=== PATIENT | male | born 1940 | race Caucasian/White ===

== ENCOUNTER 2022-08-02 09:06 | Inpatient (IN) | payer MEDICARE, OTHER ==
[~2022-08-02] VITALS: Ht 165.1 cm; Wt 83.9 kg
[2022-08-02] MEDS ORDERED: IV NS 0.9% 1,000 ML BAG IV ONE (10:00)
--- NOTE | 2022-08-02 10:03 | NUR ---
taken to CT waiting at bed side
--- NOTE | 2022-08-02 10:20 | NUR ---
MOVE SHEET SUBMITTED.
[2022-08-02] MEDS ORDERED: VANCOMYCIN 1 GM in IV D5W 250 ML IV ONE (11:00)
[2022-08-02] MEDS ORDERED: CEFEPIME 1 GM in IV D5W 50 ML IV ONE (11:00)
[2022-08-02 11:34] LABS: BASOPHILS % (AUTO) 0.3 % (0.0-2.0); EOSINOPHILS % (AUTO) 0.4 % (0.0-6.0); HEMATOCRIT 36 % (39-51); HEMOGLOBIN 11.8 g/dL (13.5-17.5); LYMPHOCYTES # (AUTO) 1.7 K/uL (0.8-4.8); LYMPHOCYTES % (AUTO) 16.3 % (20.0-44.0); MEAN CORPUSCULAR HGB CONC 33 g/dl (31.0-36.0); MEAN CORPUSCULAR VOLUME 86 fL (80-96); MONOCYTES # (AUTO) 0.8 K/uL (0.1-1.30); MONOCYTES % (AUTO) 7.3 % (2.0-12.0); NEUTROPHILS % (AUTO) 75.7 % (43.0-81.0); PLATELET COUNT (AUTO) 271 K/uL (150-450); RED BLOOD CELL COUNT(AUTO) 4.21 MIL/uL (4.5-6.0); WHITE BLOOD COUNT (AUTO) 10.5 K/uL (4.3-11.0)
--- NOTE | 2022-08-02 11:35 | NUR ---
COVID SWAB DONE AND SENT TO LAB
[2022-08-02 12:10] LABS: ALANINE AMINOTRANSFERASE 22 U/L (12-78); ALBUMIN 2.7 g/dL (3.4-5.0); ALKALINE PHOSPHATASE 46 U/L (46-116); ASPARTATE AMINOTRANSFERASE 18 U/L (15-37); BILIRUBIN,DIRECT 0.2 mg/dL (0.0-0.2); BILIRUBIN,TOTAL 0.6 mg/dL (0.2-1.0); CARBON DIOXIDE 31 mmol/L (21-32); CHLORIDE 100 mmol/L (98-107); CREATININE 0.6 mg/dL (0.6-1.3); GLUCOSE 106 mg/dL (74-106); POTASSIUM 3.9 mmol/L (3.5-5.1); SODIUM SERUM 136 mmol/L (136-145); TOTAL PROTEIN, SERUM 6.8 g/dL (6.4-8.2); UREA NITROGEN, BLOOD 12 mg/dL (7-18)
[2022-08-02] MEDS ORDERED: ONDANSETRON HCL/PF 4 MG/2 ML VIAL IVP PRN (13:00)
[2022-08-02] MEDS ORDERED: Z GUARD REMEDY 4 OZ OINT TP PRN (13:00)
[2022-08-02] MEDS ORDERED: MAGNESIUM HYDROXIDE 30 ML UDC PO PRN (13:00)
[2022-08-02] MEDS ORDERED: MAG HYDROX/AL HYDROX/SIMETH 30 ML UDC PO PRN (13:00)
[2022-08-02] MEDS ORDERED: ACETAMINOPHEN 325 MG TABLET PO PRN (13:00)
[2022-08-02 13:15] VITALS: BP 105/57
--- NOTE | 2022-08-02 13:51 | NUR ---
DR. INMAN SPEAKING WITH DR. KHANNA.
[2022-08-02] MEDS ORDERED: ENOXAPARIN SODIUM 40 MG/0.4 ML DISP.SYRIN SQ SCH (14:00)
[2022-08-02] MEDS ORDERED: ASPIRIN 325 MG TABLET PO SCH (14:00)
--- NOTE | 2022-08-02 14:01 | NUR ---
GOT BED 118
--- NOTE | 2022-08-02 16:00 | NUR ---
OPENING NOTE PATIENT RECEIVED BY GIANNA FROM ER. PATIENT HAITIAN SPEAKING WITH UNDERSTANDING OF BASIC LUXEMBOURGER. ALERT AND ORIENTED X3-4. ON ROOM AIR O2 SAT 97%. PATIENT WITH RECTAL FISTULA; PATIENT HAS A RECTAL CANCER. PATIENT ON DIAPER AND URINAL NEEDED. DIAGNOSIS CELLULITIS. VITALS AT 1600 VITALS SIGNS WITHIN NORMAL RANGE BP 105/57 HR: 77 T: 98.6 O2 SAT: 97%. PATIENT NPO, HIS STATED THAT IN ER SHE WAS TOLD HE HAS TO BE NPO UNTIL TOMORROW SKOOG PATCHING MACHINE OPERATOR SEE THE PATIENT. PATIENT HAS DECUBITAL ULCER VS DESTRUCTIVE MASS COCCYX 6X4X4 CM THREE PICTURES WERE TAKEN AND PLACED IN THE CHART. PATIENT ALLERGIC TO PENICILLIN AND IODINE.
--- NOTE | 2022-08-02 18:40 | NUR ---
RN CLOSING NOTE PATIENT IS SLEEPING IN THE BED ON A ROOM AIR NO S/S OF SOB OR DISTRESS. PATIENT HAS AN IV SIT ON RAC 18 G NORMAL SALINE AT 100 ML/HR RUNNING WELL. PATIENT IS NPO. RECTAL FISTULA, AND ON DIAPER AND URINAL NEEDED. BED AT LOWEST POSITION, CALL LIGHT WITHIN RANGE, BED ALARM ON. WILL ENDORSE THE PATIENT TO THE DIESEL ELECTRICIAN FOR SEBASTIÁN.
--- NOTE | 2022-08-02 19:30 | NUR ---
TRAILERS AND MOTOR HOMES SALESPERSON OPENING NOTE RECEIVED PT IN BED AWAKE, A/OX3, JORDANIAN SPEAKING WITH UNDERSTANDING OF BASIC LITHUANIAN. ON RA O2 SAT >95%.IV ACCESS RAC #18G, INTACT AND PATENT, RUNNING NS@75ML/HR, PATIENT NPO UNTIL MORNING.TELE MONITOR READING SR HR 75, PATIENT ABLE TO MAKE NEEDS KNOWN.PT DENIES ANY PAIN AT THIS TIME. ALL SAFETY MEASURES IN PLACE, BED LOCKED IN LOWEST POSITION. WILL CONTINUE TO MONITOR THROUGHOUT SHIFT.
[2022-08-02 20:00] VITALS: BP 105/62
[2022-08-02] MEDS: CEFEPIME 2 GM in IV D5W 100 ML IV SCH (21:30)
[2022-08-02] MEDS: VANCOMYCIN 1.25 GM in IV D5W 250 ML IV SCH (22:44)
[2022-08-03] VITALS: BP 110/66
[2022-08-03 04:00] VITALS: BP 116/72
[2022-08-03] MEDS: CEFEPIME 2 GM in IV D5W 100 ML IV SCH ×3 (04:18→20:47)
[2022-08-03] MEDS: IV NS 0.9% 1,000 ML IV PRN ×2 (04:36→20:47)
--- NOTE | 2022-08-03 07:12 | NUR ---
SOFTWARE ASSET MANAGER CLOSING NOTE RECEIVED PT IN BED AWAKE, A/OX3, BRITISH [place] ISLANDER SPEAKING WITH UNDERSTANDING OF BASIC POLISH. ON RA O2 SAT >95%.IV ACCESS RAC #18G, INTACT AND PATENT, RUNNING NS@75ML/HR, PATIENT NPO UNTIL MORNING.TELE MONITOR READING SR HR 69, PATIENT ABLE TO MAKE NEEDS KNOWN. PT DENIES ANY PAIN AT THIS TIME.ALL DUE MEDS GIVEN. ALL SAFETY MEASURES IN PLACE, BED LOCKED IN LOWEST POSITION. WILL ENDORSE TO MORNING SHIFT FOR CONTINUOUS CARE
--- NOTE | 2022-08-03 07:32 | NUR ---
RN OPENING NOTE RECEIVED PT IN BED AWAKE, A/OX3, SWAZI SPEAKING WITH SOME UNDERSTANDING OF BASIC OCCITAN. ON RA O2 SAT >95%.IV ACCESS RAC #18G, INTACT AND PATENT, RUNNING NS@75ML/HR. TELE MONITOR READING SR. ALL SAFETY MEASURES IN PLACE, BED LOCKED IN LOWEST POSITION. WILL CONTINUE PLAN OF CARE AND ANTICIPATE NEEDS.
[2022-08-03 08:00] VITALS: BP 143/57
[2022-08-03 08:49] LABS: BASOPHILS % (AUTO) 0.6 % (0.0-2.0); EOSINOPHILS % (AUTO) 1.9 % (0.0-6.0); HEMATOCRIT 35 % (39-51); HEMOGLOBIN 11.4 g/dL (13.5-17.5); LYMPHOCYTES # (AUTO) 1.9 K/uL (0.8-4.8); LYMPHOCYTES % (AUTO) 25.1 % (20.0-44.0); MEAN CORPUSCULAR HGB CONC 32 g/dl (31.0-36.0); MEAN CORPUSCULAR VOLUME 87 fL (80-96); MONOCYTES # (AUTO) 0.6 K/uL (0.1-1.30); MONOCYTES % (AUTO) 8.3 % (2.0-12.0); NEUTROPHILS # (AUTO) 4.8 K/uL (1.8-8.9); NEUTROPHILS % (AUTO) 64.1 % (43.0-81.0); PLATELET COUNT (AUTO) 235 K/uL (150-450); RED BLOOD CELL COUNT(AUTO) 4.03 MIL/uL (4.5-6.0); WHITE BLOOD COUNT (AUTO) 7.4 K/uL (4.3-11.0)
[2022-08-03] MEDS: ASPIRIN 81 MG TAB.CHEW PO SCH (09:07)
[2022-08-03] MEDS: ENOXAPARIN SODIUM 80 MG/0.8 ML DISP.SYRIN SQ SCH ×2 (09:09→20:54)
[2022-08-03 09:28] LABS: CALCIUM, SERUM 8.8 mg/dL (8.5-10.1); CREATININE 0.6 mg/dL (0.6-1.3); PHOSPHORUS 3.4 mg/dL (2.5-4.9); POTASSIUM 3.7 mmol/L (3.5-5.1)
[2022-08-03] MEDS: VANCOMYCIN 1.25 GM in IV D5W 250 ML IV SCH ×2 (10:00→23:44)
[2022-08-03] MEDS ORDERED: GABA-532 PO (10:32)
[2022-08-03] MEDS ORDERED: TAMS-12 PO (10:32)
[2022-08-03] MEDS ORDERED: OMEP40CA21 PO (10:32)
[2022-08-03] MEDS ORDERED: FURO-145 PO (10:32)
[2022-08-03] MEDS ORDERED: ROSU10TA29 PO (10:32)
[2022-08-03] MEDS ORDERED: DICL100G34 TP (10:32)
[2022-08-03] MEDS ORDERED: LEVO250T59 PO (10:32)
[2022-08-03] MEDS ORDERED: TRIA15OI2 TP (10:32)
[2022-08-03] MEDS ORDERED: SPIR25TA6 PO (10:32)
[2022-08-03] MEDS ORDERED: BENA10TA74 PO (10:32)
[2022-08-03] MEDS ORDERED: METO25TA3 PO (10:32)
[2022-08-03] MEDS ORDERED: CHOL100043 PO (10:32)
[2022-08-03] MEDS ORDERED: POTA8TAB3 PO (10:32)
[2022-08-03] MEDS ORDERED: DICL75TA5 PO (10:41)
[2022-08-03 12:00] VITALS: BP 125/64
[2022-08-03 16:00] VITALS: BP 117/78
--- NOTE | 2022-08-03 18:44 | NUR ---
RN CLOSING NOTE PT IN BED AWAKE, A/OX3, SAMMARINESE SPEAKING WITH SOME UNDERSTANDING OF BASIC YEMENI. ON RA O2 SAT >95%.IV ACCESS RIGHT HAND #22G, INTACT AND PATENT, RUNNING NS@75ML/HR. TELE MONITOR READING SR. ALL SAFETY MEASURES IN PLACE, BED LOCKED IN LOWEST POSITION. WILL ENDORSE TO NIGHTSHIFT RN FOR CONTINUATION OF CARE.
--- NOTE | 2022-08-03 19:30 | NUR ---
INSIDE SALES SUPERVISOR OPENING NOTE RECEIVED PT IN BED AWAKE, A/OX3, SAUDI ARABIAN SPEAKING WITH UNDERSTANDING OF BASIC MACEDONIAN. ON RA O2 SAT >95%.IV ACCESS RHAND #18G, INTACT AND PATENT, RUNNING NS@75ML/HR,PT ON REGULAR DIET NOW.TELE MONITOR READING SR HR 84, PATIENT ABLE TO MAKE NEEDS KNOWN.ALL SAFETY MEASURES IN PLACE, BED LOCKED IN LOWEST POSITION. WILL CONTINUE TO MONITOR THROUGHOUT SHIFT.
[2022-08-03 20:00] VITALS: BP 128/68
[2022-08-04] VITALS: BP 104/74
[2022-08-04 04:00] VITALS: BP 124/60
[2022-08-04] MEDS: CEFEPIME 2 GM in IV D5W 100 ML IV SCH ×3 (05:39→21:34)
[2022-08-04 06:49] LABS: ALANINE AMINOTRANSFERASE 18 U/L (12-78); ALBUMIN 2.3 g/dL (3.4-5.0); ALKALINE PHOSPHATASE 39 U/L (46-116); ASPARTATE AMINOTRANSFERASE 16 U/L (15-37); BILIRUBIN,TOTAL 0.4 mg/dL (0.2-1.0); CALCIUM, SERUM 8.2 mg/dL (8.5-10.1); CARBON DIOXIDE 29 mmol/L (21-32); CHLORIDE 104 mmol/L (98-107); CREATININE 0.6 mg/dL (0.6-1.3); GLUCOSE 95 mg/dL (74-106); PHOSPHORUS 3.3 mg/dL (2.5-4.9); POTASSIUM 3.6 mmol/L (3.5-5.1); SODIUM SERUM 138 mmol/L (136-145); UREA NITROGEN, BLOOD 14 mg/dL (7-18)
[2022-08-04 06:52] LABS: BASOPHILS % (AUTO) 0.5 % (0.0-2.0); EOSINOPHILS % (AUTO) 2.9 % (0.0-6.0); HEMATOCRIT 35 % (39-51); HEMOGLOBIN 11.4 g/dL (13.5-17.5); LYMPHOCYTES # (AUTO) 2.2 K/uL (0.8-4.8); LYMPHOCYTES % (AUTO) 33.1 % (20.0-44.0); MEAN CORPUSCULAR HGB CONC 32 g/dl (31.0-36.0); MEAN CORPUSCULAR VOLUME 87 fL (80-96); MONOCYTES # (AUTO) 0.6 K/uL (0.1-1.30); MONOCYTES % (AUTO) 8.6 % (2.0-12.0); NEUTROPHILS # (AUTO) 3.7 K/uL (1.8-8.9); NEUTROPHILS % (AUTO) 54.9 % (43.0-81.0); PLATELET COUNT (AUTO) 240 K/uL (150-450); RED BLOOD CELL COUNT(AUTO) 4.03 MIL/uL (4.5-6.0); WHITE BLOOD COUNT (AUTO) 6.7 K/uL (4.3-11.0)
--- NOTE | 2022-08-04 06:58 | NUR ---
MANAGER PAYROLL CLOSING NOTE PT IN BED AWAKE, A/OX3, CITIZEN OF [place] SPEAKING WITH UNDERSTANDING OF BASIC OMANI. ON RA O2 SAT >95%.IV ACCESS RAC #18G, INTACT AND PATENT, RUNNING NS@75ML/HR,PT ON REGULAR DIET NOW.TELE MONITOR READING SR HR 80, PATIENT ABLE TO MAKE NEEDS KNOWN. ALL DUE MEDS GIVEN.ALL SAFETY MEASURES IN PLACE, BED LOCKED IN LOWEST POSITION. WILL ENDORSE TO MORNING SHIFT.
--- NOTE | 2022-08-04 07:30 | NUR ---
RN OPENING NOTE PT IN BED AWAKE, A/OX3, CITIZEN OF [place] SPEAKING WITH UNDERSTANDING OF BASIC THAI. ON RA O2 SAT >95%.IV ACCESS RAC #18G, INTACT AND PATENT, RUNNING NS@75ML/HR,PT ON REGULAR DIET NOW.TELE MONITOR READING SR HR IN THE 80S, PATIENT ABLE TO MAKE NEEDS KNOWN. ALL SAFETY MEASURES IN PLACE, BED LOCKED IN LOWEST POSITION. WILL CONTINUE PLAN OF CARE AND ANTICIPATE NEEDS.
[2022-08-04 08:00] VITALS: BP 133/72
[2022-08-04] MEDS: ENOXAPARIN SODIUM 80 MG/0.8 ML DISP.SYRIN SQ SCH (08:48)
[2022-08-04] MEDS: ASPIRIN 81 MG TAB.CHEW PO SCH (08:49)
[2022-08-04] MEDS: CARVEDILOL 3.125 MG TABLET PO SCH ×3 (10:00→21:48)
[2022-08-04] MEDS: ATORVASTATIN 10 MG TABLET PO SCH ×2 (10:00→10:03)
[2022-08-04] MEDS: VANCOMYCIN 1.5 GM in IV D5W 500ml IV SCH ×2 (10:02→22:34)
[2022-08-04 10:13] LABS: CHOLESTEROL 112 mg/dL (<200); HDL CHOLESTEROL 49 mg/dL (40-60); LDL 53 mg/dL (0-99); TRIGLYCERIDES 79 mg/dL (30-150)
[2022-08-04 12:00] VITALS: BP 129/62
[2022-08-04] MEDS: PROSOURCE / PROSTAT (PYXIS) 30 ML UDC GT SCH ×2 (12:49→17:00)
[2022-08-04 16:00] VITALS: BP 126/68
--- NOTE | 2022-08-04 18:36 | NUR ---
RN CLOSING NOTE PT IN BED AWAKE, A/OX3, NEW ZEALANDER SPEAKING WITH UNDERSTANDING OF BASIC TRISTANIAN. ON RA O2 SAT >95%.IV ACCESS RIGHT HAND 22G, INTACT AND PATENT, RUNNING NS @ TKO. PT NPO. TELE MONITOR READING SR HR IN THE 70S, PATIENT ABLE TO MAKE NEEDS KNOWN. ALL SAFETY MEASURES IN PLACE, BED LOCKED IN LOWEST POSITION. WILL ENDORSE TO NIGHTSHIFT RN FOR CONTINUATION OF CARE.
--- NOTE | 2022-08-04 19:41 | NUR ---
RN OPENING NOTE RECEIVED PT IN BED AWAKE, A/OX3, STATELESS SPEAKING WITH UNDERSTANDING OF BASIC MALAY.AOX4 ABLE TO MAKE NEEDS KNOWN,MARY JANE WELL ON RN AIR,NO SIGN SOB/DISTRESS NOTED,IV ACCESS RAC #18G, INTACT AND PATENT, RUNNING NS@75ML/HR,TELE MONITOR READING SR 82HR, ALL SAFETY MEASURES IN PLACE, BED LOCKED IN LOWEST POSITION. WILL CONTINUE TO MONITOR.
[2022-08-04 20:00] VITALS: BP 135/75
[2022-08-05] VITALS: BP 133/70
[2022-08-05 04:00] VITALS: BP 139/77
[2022-08-05] MEDS: CEFEPIME 2 GM in IV D5W 100 ML IV SCH ×3 (04:11→20:47)
--- NOTE | 2022-08-05 06:33 | NUR ---
RN CLOSING NOTES;118 PT IN BED AWAKE, A/OX3, BURMESE SPEAKING WITH UNDERSTANDING OF BASIC [place] ISLANDER.AOX4 ABLE TO MAKE NEEDS KNOWN,DUE MEDS GIVEN ORDER,ALL NEEDS ATTENDED,MARY JANE WELL ON RN AIR,NO SIGN SOB/DISTRESS NOTED,IV ACCESS RAC #18G, INTACT AND PATENT, RUNNING NS@75ML/HR,TELE MONITOR READING SR 86HR, ALL SAFETY MEASURES IN PLACE, BED LOCKED IN LOWEST POSITION. WILL ENDORSED TO NEXT SHIFT.
[2022-08-05 06:41] LABS: BASOPHILS % (AUTO) 0.8 % (0.0-2.0); HEMATOCRIT 38 % (39-51); HEMOGLOBIN 12.1 g/dL (13.5-17.5); LYMPHOCYTES # (AUTO) 1.8 K/uL (0.8-4.8); LYMPHOCYTES % (AUTO) 31.5 % (20.0-44.0); MEAN CORPUSCULAR HGB CONC 32 g/dl (31.0-36.0); MEAN CORPUSCULAR VOLUME 90 fL (80-96); MONOCYTES # (AUTO) 0.5 K/uL (0.1-1.30); MONOCYTES % (AUTO) 9.1 % (2.0-12.0); NEUTROPHILS # (AUTO) 3.1 K/uL (1.8-8.9); NEUTROPHILS % (AUTO) 54.6 % (43.0-81.0); PLATELET COUNT (AUTO) 213 K/uL (150-450); RED BLOOD CELL COUNT(AUTO) 4.27 MIL/uL (4.5-6.0); WHITE BLOOD COUNT (AUTO) 5.7 K/uL (4.3-11.0)
[2022-08-05 07:13] LABS: CALCIUM, SERUM 8.6 mg/dL (8.5-10.1); CARBON DIOXIDE 27 mmol/L (21-32); CHLORIDE 103 mmol/L (98-107); CREATININE 0.5 mg/dL (0.6-1.3); GLUCOSE 108 mg/dL (74-106); POTASSIUM 4.2 mmol/L (3.5-5.1); SODIUM SERUM 135 mmol/L (136-145); UREA NITROGEN, BLOOD 11 mg/dL (7-18)
--- NOTE | 2022-08-05 07:20 | NUR ---
RN OPENING NOTE RECEIVED PT IN BED AWAKE, A/OX3, TRISTANIAN SPEAKING WITH UNDERSTANDING OF BASIC POLISH.AOX4 ABLE TO MAKE NEEDS KNOWN,MARY JANE WELL ON RN AIR,NO SIGN SOB/DISTRESS NOTED,IV ACCESS RAC #18G, INTACT AND PATENT, RUNNING NS@75ML/HR,TELE MONITOR READING SR 82HR, ALL SAFETY MEASURES IN PLACE, BED LOCKED IN LOWEST POSITION.
[2022-08-05 08:00] VITALS: BP 158/80
[2022-08-05] MEDS: ASPIRIN 81 MG TAB.CHEW PO SCH (08:25)
[2022-08-05] MEDS: CARVEDILOL 3.125 MG TABLET PO SCH ×2 (08:26→20:48)
[2022-08-05] MEDS: ATORVASTATIN 10 MG TABLET PO SCH (08:26)
[2022-08-05] MEDS: PROSOURCE / PROSTAT (PYXIS) 30 ML UDC GT SCH ×3 (08:29→17:03)
[2022-08-05] MEDS ORDERED: IOHEXOL-350 100 ML VIAL IV ONE (10:14)
[2022-08-05] MEDS ORDERED: LIDOCAINE HCL/PF 1% 30 ML SDV ONE (10:15)
[2022-08-05] MEDS: VANCOMYCIN 1.5 GM in IV D5W 500ml IV SCH ×3 (11:24→23:00)
[2022-08-05 12:00] VITALS: BP 149/77
[2022-08-05 16:00] VITALS: BP 139/76
--- NOTE | 2022-08-05 18:52 | NUR ---
RN CLOSING NOTES;118 PT IN BED AWAKE, A/OX3, GAMBIAN SPEAKING WITH UNDERSTANDING OF BASIC BURUNDIAN.AOX4 ABLE TO MAKE NEEDS KNOWN,DUE MEDS GIVEN ORDER,ALL NEEDS ATTENDED,TOLERATING WELL ON RN AIR,NO SIGN SOB/DISTRESS NOTED,IV ACCESS RAC #18G, INTACT AND PATENT, R, ALL SAFETY MEASURES IN PLACE, BED LOCKED IN LOWEST POSITION. WILL ENDORSED TO NEXT SHIFT.
--- NOTE | 2022-08-05 19:39 | NUR ---
RN OPENING NOTES: RECEIVED PT IN BED, AWAKE, A/O X3-4 AND VERBALLY RESPONSIVE. [place]OTHO SPEAKING ONLY. UNDERSTAND BASIC LAO. COOPERATIVE. ON CHRISSY,M AIR AND PT TOLERATED WELL. BREATHING EVEN AND UNLABORED. IV ACCESS RT WRIST #22G INTACT AND PATENT. NO S/S OF IN FILTRATIONS. NO C/O PAIN OR DISCOMFORT. NO ACUTE DISTRESS. ALL SAFETY MEASURES IN PLACE. BED IN LOWEST POSITION AND LOCKED.SIDE RAILS UP X3, PLACE CALL LIGHT WITH IN REACH. WILL CONTINUE TO MONITOR
[2022-08-05 20:00] VITALS: BP 131/79
--- NOTE | 2022-08-05 23:25 | NUR ---
RN NOTES: HOLD VANCOMYCIN PER PHARMACY ORDER. VANCO THROUGH . WILL CONTINUE TO MONITOR
[2022-08-06] VITALS: BP 117/79
[2022-08-06 04:00] VITALS: BP 123/63
[2022-08-06] MEDS: CEFEPIME 2 GM in IV D5W 100 ML IV SCH ×2 (04:33→13:54)
--- NOTE | 2022-08-06 06:33 | NUR ---
RN CLOSING NOTES: PT IN BED, AWAKE, A/O X3-4 AND VERBALLY RESPONSIVE. GUYANESE SPEAKING. COOPERATIVE. ON ROOM AIR AND PT TOLERATED WELL. O2 SAT 93%. BREATHING EVEN AND UNLABORED. IV ACCESS RT WRIST #22G INTACT AND PATENT. NO S/S OF IN FILTRATIONS. NO C/O PAIN OR DISCOMFORT. NO ACUTE DISTRESS. ALL DUE MEDS GIVEN ORDERED. ALL SAFETY MEASURES IN PLACE. BED IN LOWEST POSITION AND LOCKED.SIDE RAILS UP X3, PLACE CALL LIGHT WITH IN REACH. WILL ENDORSE TO MORNING SHIFT NURSE
[2022-08-06 07:01] LABS: CARBON DIOXIDE 34 mmol/L (21-32); CHLORIDE 102 mmol/L (98-107); CREATININE 0.6 mg/dL (0.6-1.3); GLUCOSE 112 mg/dL (74-106); POTASSIUM 3.9 mmol/L (3.5-5.1); SODIUM SERUM 137 mmol/L (136-145); UREA NITROGEN, BLOOD 13 mg/dL (7-18)
--- NOTE | 2022-08-06 07:34 | NUR ---
RN OPENING NOTE PATIENT IS IN BED AWAKE, ALERT ORIENTED X 4. ON ROOM AIR , BREATHING UNLABORED AND NOT IN ANY FORM OF DISTRESS. RIGHT HAND IV INTACT AND PATENT. RIGHT WRIST IV INTACT AND PATENT. NO S/S OF INFILTRATION OR PHLEBITIS NOTED. COLOSTOMY INTACT. ALL HOSPITAL SAFETY PRECAUTIONS IN PLACE. BED IS LOCKED IN LOWEST POSITION, 3 SIDE RAILS UP, CALL LIGHT WITHIN REACH. WILL CONTINUE TO MONITOR THROUGHOUT SHIFT.
[2022-08-06 08:00] VITALS: BP 152/77
[2022-08-06] MEDS: PROSOURCE / PROSTAT (PYXIS) 30 ML UDC GT SCH ×2 (08:46→13:33)
[2022-08-06] MEDS: ATORVASTATIN 10 MG TABLET PO SCH (08:47)
[2022-08-06] MEDS: CARVEDILOL 3.125 MG TABLET PO SCH (08:47)
[2022-08-06] MEDS: ASPIRIN 81 MG TAB.CHEW PO SCH (08:47)
[2022-08-06] MEDS ORDERED: VANCOMYCIN 1 GM in IV D5W 250ml IV SCH (10:00)
[2022-08-06 12:00] VITALS: BP 131/74
[2022-08-06 16:00] VITALS: BP 129/73
[2022-08-06] MEDS ORDERED: DOXY-326 PO (16:03)
--- NOTE | 2022-08-06 16:50 | NUR ---
RN CLOSING NOTE PATIENT IS DISCHARGED TO HOME VIA WHEELCHAIR, IN STABLE DISPOSITION, BREATHING UNLABORED AND NOT IN ANY FORM OF DISTRESS. ALL FORMS SIGNED AND SKIN ISSUES DOCUMENTED. IV DISCONTINUED AND SITE COVERED WITH DRY DRESSING. DISCHARGE V/S: T 97.7, HR 69, RR 18, O2 SAT 97%, BP 129/73.
== END 2022-08-06 18:51 | disposition home or self-care (01) | DRG 281 ==
LOC: ER 09:17 → TRANSITION 13:04 → TELE1 14:04
PROVIDERS: ADMIT Internal Medicine; ATTEND Nurse Practitioner Acute Care
DX: I21.4 Non-ST elevation (NSTEMI) myocardial infarction (principal); K63.2 Fistula of intestine; N39.0 Urinary tract infection, site not specified; L02.211 Cutaneous abscess of abdominal wall; Z93.3 Colostomy status; Z20.822 Contact with and (suspected) exposure to COVID-19; I10 Essential (primary) hypertension; Z88.0 Allergy status to penicillin; Z90.49 Acquired absence of other specified parts of digestive tract; Z85.038 Personal history of other malignant neoplasm of large intestine; Z87.898 Personal history of other specified conditions; D64.9 Anemia, unspecified; Z98.890 Other specified postprocedural states; I35.0 Nonrheumatic aortic (valve) stenosis
CPT/HCPCS: 20501; 36415; 71045-TC; 80048-TC; 80053-TC; 80061-TC; 80076-TC; 80202-TC; 83605-TC; 83735-TC; 84100-TC; 84484-TC; 85025-TC; 87040-TC; 87081-TC; 93307-TC; A4349; A6253; C9803; G0378; J0692; J1650; J3370; J3490; J7030; J7060; Q9967

== ENCOUNTER 2022-12-10 12:53 | Inpatient (IN) | payer MEDICARE, OTHER ==
[~2022-12-10] VITALS: Ht 170.2 cm; Wt 84.4 kg
[~2022-12-10 12:53] MED LIST: BENA10TA74 PO; CHOL100043 PO; DICL100G34 TP; DICL75TA5 PO; DOXY-326 PO; FURO-145 PO; GABA-532 PO; LEVO250T59 PO; METO25TA3 PO; OMEP40CA21 PO; POTA8TAB3 PO; ROSU10TA29 PO; SPIR25TA6 PO; TAMS-12 PO; TRIA15OI2 TP
--- NOTE | 2022-12-10 13:05 | NUR ---
allison c/o head hurts s/p fall x 2 since friday 05/04 ps
--- NOTE | 2022-12-10 13:19 | NUR ---
at bedside for eval
--- NOTE | 2022-12-10 13:39 | NUR ---
TECH AT BEDSIDE FOR EKG
--- NOTE | 2022-12-10 13:41 | NUR ---
MOVE SHEET SUBMITTED.
--- NOTE | 2022-12-10 13:53 | NUR ---
established iv line 20 g left wrist ,
--- NOTE | 2022-12-10 13:54 | NUR ---
Kimberley day in [facility] - 12/10/22 at 1354 by ROBERTO CARLOS urine sample obtained
--- NOTE | 2022-12-10 13:54 | NUR ---
blood sample obtained
--- NOTE | 2022-12-10 13:54 | NUR ---
covid swab taken
[2022-12-10] MEDS ORDERED: SULF1TAB48 PO (13:55)
[2022-12-10] MEDS ORDERED: DULO20CA PO (13:55)
[2022-12-10] MEDS ORDERED: FESO4TAB PO (13:55)
[2022-12-10] MEDS ORDERED: LIDO700A30 TP (13:55)
[2022-12-10] MEDS ORDERED: METO25TA6 PO (13:55)
[2022-12-10] MEDS ORDERED: NYST15CR TP (13:55)
[2022-12-10] MEDS ORDERED: FENO145T21 PO (13:55)
[2022-12-10 14:00] LABS: BASOPHILS # (AUTO) 0.1 K/uL (0.0-0.2); BASOPHILS % (AUTO) 0.5 % (0.0-2.0); EOSINOPHILS % (AUTO) 2.1 % (0.0-6.0); HEMATOCRIT 40 % (39-51); HEMOGLOBIN 12.9 g/dL (13.5-17.5); LYMPHOCYTES # (AUTO) 2.5 K/uL (0.8-4.8); LYMPHOCYTES % (AUTO) 20.3 % (20.0-44.0); MEAN CORPUSCULAR HGB CONC 33 g/dl (31.0-36.0); MEAN CORPUSCULAR VOLUME 90 fL (80-96); MONOCYTES # (AUTO) 0.9 K/uL (0.1-1.30); MONOCYTES % (AUTO) 7.5 % (2.0-12.0); NEUTROPHILS # (AUTO) 8.6 K/uL (1.8-8.9); NEUTROPHILS % (AUTO) 69.6 % (43.0-81.0); PLATELET COUNT (AUTO) 311 K/uL (150-450); RED BLOOD CELL COUNT(AUTO) 4.37 MIL/uL (4.5-6.0); WHITE BLOOD COUNT (AUTO) 12.4 K/uL (4.3-11.0)
--- NOTE | 2022-12-10 14:06 | NUR ---
pt taken to radiology for ct
[2022-12-10 14:20] LABS: ALANINE AMINOTRANSFERASE 24 U/L (12-78); ALBUMIN 2.8 g/dL (3.4-5.0); ALKALINE PHOSPHATASE 65 U/L (46-116); ASPARTATE AMINOTRANSFERASE 19 U/L (15-37); BILIRUBIN,DIRECT 0.2 mg/dL (0.0-0.2); BILIRUBIN,TOTAL 0.4 mg/dL (0.2-1.0); CALCIUM, SERUM 10.9 mg/dL (8.5-10.1); CARBON DIOXIDE 27 mmol/L (21-32); CHLORIDE 100 mmol/L (98-107); CREATININE 0.8 mg/dL (0.6-1.3); GLUCOSE 127 mg/dL (74-106); POTASSIUM 4.5 mmol/L (3.5-5.1); SODIUM SERUM 133 mmol/L (136-145); TOTAL PROTEIN, SERUM 6.8 g/dL (6.4-8.2); UREA NITROGEN, BLOOD 22 mg/dL (7-18)
--- NOTE | 2022-12-10 14:27 | NUR ---
[facility] CALLED MEN'S LEATHER DRESS BELT MAKER PAGED.
--- NOTE | 2022-12-10 15:00 | NUR ---
[facility] CALLED FIBERGLASS BOAT MAKER PAGED.
--- NOTE | 2022-12-10 15:35 | NUR ---
[facility] CALLED PLAN COORDINATOR PAGED.
[2022-12-10] MEDS ORDERED: NITROGLYCERIN PACKET 1 GM PACKET TD ONE (16:00)
[2022-12-10] MEDS ORDERED: ASPIRIN 325 MG TABLET PO ONE (16:00)
[2022-12-10] MEDS ORDERED: ASPIRIN 325 MG TABLET ONE (16:07)
[2022-12-10] MEDS ORDERED: NITROGLYCERIN PACKET 1 GM PACKET ONE (16:07)
--- NOTE | 2022-12-10 16:50 | NUR ---
GOT BED ASSIGNMENT 304-1 ADMITTING INFORMED.
[2022-12-10] MEDS ORDERED: NITROGLYCERIN 0.4 MG/TAB BOTTLE SL PRN (17:00)
[2022-12-10] MEDS ORDERED: ACETAMINOPHEN 325 MG TABLET PO PRN (17:00)
[2022-12-10] MEDS ORDERED: MAGNESIUM HYDROXIDE 30 ML UDC PO PRN (17:00)
[2022-12-10] MEDS ORDERED: MORPHINE SULFATE INJ 2 MG/ML DISP.SYRIN IV PRN (17:00)
[2022-12-10] MEDS ORDERED: ENOXAPARIN SODIUM 40 MG/0.4 ML DISP.SYRIN SQ SCH (17:00)
[2022-12-10] MEDS ORDERED: Z GUARD REMEDY 4 OZ OINT TP PRN (17:00)
[2022-12-10] MEDS ORDERED: ONDANSETRON HCL/PF 4 MG/2 ML VIAL IVP PRN (17:00)
[2022-12-10] MEDS ORDERED: MAG HYDROX/AL HYDROX/SIMETH 30 ML UDC PO PRN (17:00)
--- NOTE | 2022-12-10 17:09 | NUR ---
REPORT GIVEN TO SORIN DESOUZA
--- NOTE | 2022-12-10 17:25 | NUR ---
PATIENT MOVED TO INPATIENT ROOM SAFELY PER ACLS PROTOCOL
--- NOTE | 2022-12-10 18:22 | NUR ---
RN NOTE PATIENT WAS TRANSFERRED FROM ER VIA GURNEY WITH NO SIGN OF DISTRESS. REPORT RECEIVED FORM ER NURSE (MARCH). PATIENT WAS ORIENTED TO ROOM SET UP AND EDUCATED ON THE USE OF CALL LIGHT. V/S TAKEN, STABLE AND RECORDED. SKIN ASSESSMENT DONE AND PICTURES TAKEN. ALL BELONGING CHECKED AND BELONGING LIST SIGNED. PATIENT AWAKE IN BED RESTING, A/O X 4. NO S/S OF PAIN NOTED AT THIS TIME. ON ROOM AIR, BREATHING EVEN UNLABORED, NO DISTRESS OR SHORTNESS OF BREATH NOTED AT THIS TIME. IV ACCESS L WRIST #20 G, INTACT PATENT AND FLUSHING WELL. FALL AND SAFETY MEASURES IN PLACE, BED ALARM ON, BED IN LOW AND LOCK POSITION, CALL LIGHT AND TABLE WITHIN EASY REACH, SIDE RAILS UP X2. ALL NEEDS ATTENDED AND ANTICIPATED. WILL ENDORSE TO DRAW IN HAND NURSE.
[2022-12-10 18:53] VITALS: BP 107/67
--- NOTE | 2022-12-10 19:52 | NUR ---
PREANALYTICS TEAM LEAD NOTES RECEIVED PATIENT IN BED, ON MODERATE HIGH BACK REST POSITION. A/O X 4, THAI SPEAKING. ON ROOM AIR WITH OXYGEN SATURATION OF 98-99%.BREATH EVENLY, ON DO NOT RESUSCITATE CODE STATUS. WITH COLOSTOMY NOTED AND IV ACCESS AT LEFT WRIST #20G PATENT AND INTACT. NO COMPLAIN OF PAIN OR ANY DISCOMFORT AT THIS TIME. NO CHEST PAIN NOTED. KEPT SIDE RAILS UP X 2, KEPT BED ON LOWER LOCKED POSITION. KEPT CALL LIGHT WITHIN REACH. SAFETY PRECAUTIONS MAINTAINED. WILL CONTINUE TO MONITOR PATIENT.
[2022-12-10 20:00] VITALS: BP 99/54
[2022-12-10] MEDS: TAMSULOSIN 0.4 MG CAP.SR.24H PO SCH (22:11)
[2022-12-10] MEDS: ATORVASTATIN 10 MG TABLET PO SCH (22:11)
[2022-12-11] VITALS (7 sets, daily range): BP systolic 92–110; BP diastolic 22–71
[2022-12-11 06:20] LABS: BASOPHILS % (AUTO) 0.4 % (0.0-2.0); HEMATOCRIT 38 % (39-51); HEMOGLOBIN 12.5 g/dL (13.5-17.5); LYMPHOCYTES # (AUTO) 2.3 K/uL (0.8-4.8); LYMPHOCYTES % (AUTO) 20.6 % (20.0-44.0); MEAN CORPUSCULAR HGB CONC 33 g/dl (31.0-36.0); MEAN CORPUSCULAR VOLUME 92 fL (80-96); MONOCYTES # (AUTO) 0.9 K/uL (0.1-1.30); MONOCYTES % (AUTO) 8.1 % (2.0-12.0); NEUTROPHILS # (AUTO) 7.5 K/uL (1.8-8.9); NEUTROPHILS % (AUTO) 67.9 % (43.0-81.0); PLATELET COUNT (AUTO) 263 K/uL (150-450); RED BLOOD CELL COUNT(AUTO) 4.15 MIL/uL (4.5-6.0)
[2022-12-11 06:23] LABS: CALCIUM, SERUM 10.7 mg/dL (8.5-10.1); CARBON DIOXIDE 27 mmol/L (21-32); CHLORIDE 100 mmol/L (98-107); CREATININE 0.6 mg/dL (0.6-1.3); GLUCOSE 103 mg/dL (74-106); MAGNESIUM 2.1 mg/dL (1.8-2.4); PHOSPHORUS 3.5 mg/dL (2.5-4.9); POTASSIUM 4.4 mmol/L (3.5-5.1); SODIUM SERUM 134 mmol/L (136-145); UREA NITROGEN, BLOOD 19 mg/dL (7-18)
--- NOTE | 2022-12-11 06:32 | NUR ---
CLIENT ACCOUNT REPRESENTATIVE CLOSING NOTES PATIENT IS ON BED, ASLEEP A/O X 4 IRAQI SPEAKING; ON DNR CODE STATUES. ON ROOM AIR, BREATH EVENLY AND TOLERATING WELL. WITH IV ACCESS AT L WRIST #20G SL. PATENT AND INTACT. WITH COLOSTOMY BAG. ON BED REST; NO COMPLAIN OF CHEST PAIN OR ANY DISCOMFORT AT THIS TIME. ALL DUE MEDICATIONS GIVEN PRESCRIBED. EVENING AND MORNING CARE RENDERED. ALL NEEDS ATTENDED. KEPT SIDE RAILS UP X 2 ALL THE TIME, KEPT BED ON LOWER LOCKED POSITION, SAFETY MEASURES MAINTAINED. WILL ENDORSED TO ORACLE SECURITY CONSULTANT FOR SEBASTIÁN.
--- NOTE | 2022-12-11 07:40 | NUR ---
DIRECTOR CARD OPENING NOTES PATIENT AWAKE IN BED A/O X 4. ON ROOM AIR, BREATH EVENLY AND TOLERATING WELL. ON TELE MONITORING READING SR HR 89. WITH IV ACCESS AT L WRIST #20G SL. PATENT AND INTACT. WITH COLOSTOMY BAG. ON BED REST; NO COMPLAIN OF CHEST PAIN OR ANY DISCOMFORT AT THIS TIME. KEPT SIDE RAILS UP X 2 ALL THE TIME, KEPT BED ON LOWER LOCKED POSITION, SAFETY MEASURES MAINTAINED. WILL CONTINUE TO MONITOR.
[2022-12-11] MEDS: PANTOPRAZOLE 40 MG TABLET.DR PO SCH (08:03)
[2022-12-11] MEDS: ASPIRIN EC 81 MG TABLET.DR PO SCH (08:29)
[2022-12-11] MEDS: CHOLECALCIFEROL 1,000 UNIT TABLET (VIT D3) PO SCH (08:29)
[2022-12-11] MEDS: METOPROLOL TARTRATE 25 MG TABLET PO SCH (08:30)
[2022-12-11] MEDS: DULOXETINE HCL 20 MG CAPSULE.DR PO SCH (08:30)
[2022-12-11] MEDS: BENAZEPRIL HCL 10 MG TABLET PO SCH (08:31)
[2022-12-11] MEDS: FENOFIBRATE NANOCRYS (145 MG) 145 MG TABLET PO SCH (08:31)
--- NOTE | 2022-12-11 08:44 | NUR ---
WOUND CARE CONSULT: PT REFUSED SKIN ASSESSMENT AT THIS TIME. PT HAVING CHEST PAIN. UX DEVELOPER DESIGNER HERE. REVIEWED CHART, NURSING DOCUMENTATION AND PHOTOS WHICH INDICATE SACRAL INTACT DEEP TISSUE INJURY WITH SCARRING, BILATERAL BUTTOCK WOUNDS WITH PACKING STRIPS, PRESENT ON ADMISSION. DR KIM CALLED FOR SURGICAL CONSULT. DISCUSSED SKIN PROTECTION WITH NURSING STAFF. PT IS ON NAMRATA ISOFLEX LOW AIRLOSS BED. MD IN AGREEMENT WITH PLAN OF CARE.
[2022-12-11] MEDS: GABAPENTIN 100 MG CAPSULE PO SCH (09:01)
--- NOTE | 2022-12-11 09:30 | NUR ---
RN NOTES AROUND 0840H, PATIENT WAS COMPLAINING OF CHEST PAIN WITH TELE MONITOR READING SINUS TACHY 180'S, PLACED PATIENT ON OXYGEN AT 2LPM SATURATING AT 98%,BP-132/70, RR-20 T-98.2. ALL MORNING MEDS GIVEN AT THIS TIME, ECG STAT DONE. CARDIO DOCTOR ORDERED TRANSFER PATIENT TO [facility] FOR MORE INTENSIVE MONITORING. PATIENT HR DECREASED TO 100-110BPM AFTER 15MINS, PATIENT TRANSFERRED TO [facility] AT 0915, AWAKE A/OX3-4, NO COMPLAINS OF PAIN OR DISCOMFORT AT THIS TIME. REPORT GIVEN TO [facility] NURSE STAFF AT BEDSIDE. ENDORSED.
[2022-12-11] MEDS ORDERED: AMIODARONE 150 MG in IV D5W 100 ML IV ONE ×2 (10:00→11:00)
--- NOTE | 2022-12-11 10:29 | NUR ---
raymond rn note on tell monitor sr hr [address] toro with order to start amiodarone 400 po bid , order carried out
[2022-12-11] MEDS: LIDOCAINE 5% (PATCH) 1 EA PATCH TP SCH (10:41)
[2022-12-11] MEDS ORDERED: AMIODARONE 450 MG in IV D5W 241 ML IV PRN (11:00)
[2022-12-11] MEDS: AMIODARONE HCL 200 MG TABLET PO SCH ×2 (11:19→17:58)
[2022-12-11] MEDS: ENOXAPARIN SODIUM 80 MG/0.8 ML DISP.SYRIN SQ SCH ×2 (11:36→22:33)
--- NOTE | 2022-12-11 17:00 | NUR ---
SS consult requested for pt. who comes from home with wounds. SW will followup at a later time.
[2022-12-11] MEDS ORDERED: PAMIDRONATE 30 MG in IV NS 0.9% 500 ML IV ONE (19:00)
--- NOTE | 2022-12-11 19:15 | NUR ---
ARGENIS RN CLOSING NOTES PATIENT AWAKE IN BED A/O X 4. ON ROOM AIR, BREATH EVENLY AND TOLERATING WELL. ON TELE MONITORING READING SR HR 89. WITH IV ACCESS AT L WRIST #20G SL.AND RIGHT UPPER ARM MIDLINE PATENT AND INTACT. WITH COLOSTOMY BAG. ON BED REST; NO COMPLAIN OF CHEST PAIN OR ANY DISCOMFORT AT THIS TIME. KEPT SIDE RAILS UP X 2 ALL THE TIME, KEPT BED ON LOWER LOCKED POSITION, SAFETY MEASURES MAINTAINED.ENDORSED TO BARREL RIFLER BUTTON RN TO MONITOR.
[2022-12-11] MEDS ORDERED: IV NS 0.9% 500 ML IV PRN (19:30)
--- NOTE | 2022-12-11 19:30 | NUR ---
RN NOTES: NOTED LAYING BP 84/39 AND SITTING BP 105/[address] INMAN WHO SAID TO CHECK BP MANUALLY IF LAYING BP IS LOW TO START NS AT 125 ML/HR, MANUAL BP CHECKED LAYING 102/50 AND SITTING 105/50 .NO IV FLUID NEEDED, ENDORSED TO A P MECHANIC RN TO MONITOR
--- NOTE | 2022-12-11 19:40 | NUR ---
ARGENIS RN OPENING NOTES RECEIVED PT IN BED, ASLEEP WITH FAMILY AT BESIDE. ON ROOM AIR, BREATHING EVEN AND UNLABORED. NO SOB/DISTRESS NOTED. O2 SAT OF 98%. ON TELE MONITOR SR HR OF 89. IV ACCESS AT L WRIST #20G S/L AND RIGHT UPPER ARM MIDLINE PATENT AND INTACT, WITH COLOSTOMY BAG IN PLACE. NO COMPLAIN OF CHEST PAIN OR ANY DISCOMFORT AT THIS TIME. SAFETY MEASURES IN PLACE: BED LOCKED IN LOWEST POSITION, SIDE RAILS UP X 2, CALL LIGHT WITHIN REACH. WILL CONTINUE TO MONITOR.
[2022-12-11] MEDS: IV NS 0.9% 1,000 ML IV SCH (19:45)
[2022-12-11] MEDS: TAMSULOSIN 0.4 MG CAP.SR.24H PO SCH (21:09)
[2022-12-11] MEDS: ATORVASTATIN 10 MG TABLET PO SCH (21:09)
--- NOTE | 2022-12-11 23:30 | NUR ---
REPORT GIVEN TO CURTIS RN, PATIENT AWAKE, GREEK SPEAKING, AAO X 3, ON ROOM AIR, BREATHING EVEN AND UNLABORED. NO SOB/DISTRESS NOTED. O2 SAT OF 98%. ON TELE MONITOR SR HR OF 89. IV ACCESS AT L WRIST #20G S/L AND RIGHT UPPER ARM MIDLINE PATENT AND INTACT, WITH COLOSTOMY BAG IN PLACE. ALL DUE MEDS WERE GIVEN AND NEEDS ATTENDED. NO COMPLAIN OF CHEST PAIN OR ANY DISCOMFORT AT THIS TIME. SAFETY MEASURES MAINTAINED. TRANSFERRED BY ACLS PROTOCOL
[2022-12-12] VITALS (8 sets, daily range): BP systolic 92–109; BP diastolic 33–57
--- NOTE | 2022-12-12 00:17 | NUR ---
SOFTWARE SUPPORT SPECIALIST OPENING NOTES: RECEIVED PATIENT TRANSFER FORM AR[facility] AT 2330 ON BED, ON STABLE CONDITION, PATIENT ON ROOM AIR SATURATING WELL, NO SOB WAS OBSERVED, HOB AT 45 DEGREE IV LINE AT SHERRI ML WITH AREDIA AT 100ML/HR INFUSING WELL, L WRIST#20 WITH ONGOING 0.9NSS@100ML/HR INFUSING WELL,, COLOSTOMY BAG WAS DRAIN WITH 500 OUTPUT BOWEL MOVEMENT, PATIENT WAS PLACED ON TELE MONITOR AND AT SR-74, NO SYMPTOMS WAS OBSERVED. PATIENT WAS ORIENTED TO ROOM REMIND TO USE THE CALL LIGHTS WHEN NEEDED ASSISTANCE, PATIENT KEPT CLEAN AND DRY ALL NEEDS MET WILL CONTINUE TO MONITOR.
[2022-12-12] MEDS: IV NS 0.9% 1,000 ML IV SCH ×2 (05:37→15:41)
[2022-12-12 05:50] LABS: BASOPHILS % (AUTO) 0.3 % (0.0-2.0); EOSINOPHILS % (AUTO) 1.5 % (0.0-6.0); HEMATOCRIT 35 % (39-51); HEMOGLOBIN 11.5 g/dL (13.5-17.5); LYMPHOCYTES # (AUTO) 2.1 K/uL (0.8-4.8); LYMPHOCYTES % (AUTO) 20.6 % (20.0-44.0); MEAN CORPUSCULAR HGB CONC 33 g/dl (31.0-36.0); MEAN CORPUSCULAR VOLUME 91 fL (80-96); MONOCYTES # (AUTO) 0.7 K/uL (0.1-1.30); MONOCYTES % (AUTO) 6.7 % (2.0-12.0); NEUTROPHILS # (AUTO) 7.4 K/uL (1.8-8.9); NEUTROPHILS % (AUTO) 70.9 % (43.0-81.0); PLATELET COUNT (AUTO) 260 K/uL (150-450); RED BLOOD CELL COUNT(AUTO) 3.83 MIL/uL (4.5-6.0); WHITE BLOOD COUNT (AUTO) 10.4 K/uL (4.3-11.0)
[2022-12-12 06:08] LABS: ALBUMIN 2.1 g/dL (3.4-5.0); BILIRUBIN,TOTAL 0.5 mg/dL (0.2-1.0); CALCIUM, SERUM 9.6 mg/dL (8.5-10.1); CREATININE 0.6 mg/dL (0.6-1.3); MAGNESIUM 1.9 mg/dL (1.8-2.4); PHOSPHORUS 3.3 mg/dL (2.5-4.9); POTASSIUM 3.9 mmol/L (3.5-5.1); TOTAL PROTEIN, SERUM 5.5 g/dL (6.4-8.2)
--- NOTE | 2022-12-12 07:05 | NUR ---
ELECTRIC SERVICEMAN CLOSING NOTES: PATIENT SLEEP IN BED COMFORTABLY, AROUSABLE TO VERBAL STIMULI, BED IN LOW POSITION CALL LIGHTS WITHIN REACH, NO COMPLAIN OF PAIN AND DISCOMFORT AT THIS TIME, ON ROOM AIR SATURATING WELL, ON TELE MONITOR- SR-76 WITH COLOSTOMY BAG DRAIN AND CLEAN,PATIENT KEPT CLEAN AND DRY ALL NEEDS MET ENDORSE TO INCOMING SHIFT.
--- NOTE | 2022-12-12 07:32 | NUR ---
SCHOOL NURSE OPENING NOTES: RECEIVED PATIENT ON BED AWAKE CAPE VERDEAN SPEAKING , ON STABLE CONDITION, PATIENT ON ROOM AIR SATURATING WELL, NO SOB OR DISTRESS NOTED , HOB AT 45 DEGREE IV LINE AT SHERRI ML , L WRIST#20 WITH ONGOING NS @100ML/HR INFUSING WELL, WITH COLOSTOMY BAG , ON TELE MONITOR AND AT SR-76 , NO C/O OF PAIN AND DISCOMFORT NOTED . SAFETY MEASURE PROVIDE , SIDERAILS UP X 2 , CALL LIGHT WHEN NEEDED ASSISTANCE, PATIENT KEPT CLEAN AND DRY . WILL CONTINUE TO MONITOR
[2022-12-12] MEDS: PANTOPRAZOLE 40 MG TABLET.DR PO SCH (07:58)
[2022-12-12] MEDS: LIDOCAINE 5% (PATCH) 1 EA PATCH TP SCH (09:15)
[2022-12-12] MEDS: FENOFIBRATE NANOCRYS (145 MG) 145 MG TABLET PO SCH (09:15)
[2022-12-12] MEDS: CHOLECALCIFEROL 1,000 UNIT TABLET (VIT D3) PO SCH (09:16)
[2022-12-12] MEDS: GABAPENTIN 100 MG CAPSULE PO SCH (09:16)
[2022-12-12] MEDS: DULOXETINE HCL 20 MG CAPSULE.DR PO SCH (09:17)
[2022-12-12] MEDS: AMIODARONE HCL 200 MG TABLET PO SCH ×2 (09:17→17:33)
[2022-12-12] MEDS: BENAZEPRIL HCL 10 MG TABLET PO SCH (09:18)
[2022-12-12] MEDS: METOPROLOL TARTRATE 25 MG TABLET PO SCH (09:18)
[2022-12-12] MEDS: ENOXAPARIN SODIUM 40 MG/0.4 ML DISP.SYRIN SQ SCH (09:19)
[2022-12-12] MEDS: ASPIRIN EC 81 MG TABLET.DR PO SCH (09:21)
--- NOTE | 2022-12-12 11:42 | NUR ---
WOUND CARE CONSULT: PT SEEN FOR SKIN ASSESSMENT AND NOTED TO HAVE SACRAL SCARRING WITH INTACT DEEP TISSUE INJURY AND SMALL OPENINGS TO EACH BUTTOCK WHICH ARE 4CM DEEP WITH SCANT PURULENT DRAINAGE RT BUTTOCK AND SCANT SEROSANGUINOUS DRAINAGE LEFT BUTTOCK, PRESENT ON ADMISSION. PT ALSO NOTED TO HAVE RAISED LESION TO LEFT BUTTOCK, PRESENT ON ADMISSION. DR KIM WAS NOTIFIED OF SURGICAL CONSULT. IODOFORM PACKING 1/4 INCH WAS USED FOR BILATERAL BUTTOCK WOUNDS AND COVERED WITH OPTIFOAM DRESSINGS. PT IS INCONTINENT OF STOOL. PT HAS COLOSTOMY. DISCUSSED SKIN PROTECTION AND WOUND CARE WITH NURSING STAFF. IN AGREEMENT WITH PLAN OF CARE. -
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
--- NOTE | 2022-12-12 18:26 | NUR ---
MACHINE FILLER SERVICER CLOSING NOTES: PATIENT ON BED AWAKE , SOLOMON ISLANDER SPEAKING , ON STABLE CONDITION, PATIENT ON ROOM AIR SATURATING WELL, NO SOB OR DISTRESS NOTED , HOB AT 45 DEGREE IV LINE AT SHERRI ML , L WRIST#20 WITH ONGOING NS @100ML/HR INFUSING WELL, WITH COLOSTOMY BAG , ON TELE MONITOR AND AT SR-76 , ALL DUE MEDS ORDERED , NO C/O OF PAIN AND DISCOMFORT NOTED . SAFETY MEASURE PROVIDE , SIDERAILS UP X 2 , CALL LIGHT WHEN NEEDED ASSISTANCE, PATIENT KEPT CLEAN AND DRY . ENDORSED TO NEXT SHIFT
--- NOTE | 2022-12-12 19:10 | NUR ---
RN NOTES: RECEIVED AWAKE ON BED, ON TELE MONITOR SR-78, HE IS LYING ON THE HIS RIGHT SIDE, HIS SON PRESENT AT BED SIDE AND ASKED IF WE CAN GIVE HIM TYLENOL OR ANY PAIN MEDICATION LATER NOT NOW, A/OX2-3, CAMEROONIAN SPEAKING, CAN COMMUNICATE LITTLE KYRGYZ, ORIENTED TO UNIT AND STAFF, SHERRI ML INTACT, WITH IVF OF NS AT 100 ML/HR PATENT, O2 AT 3L/MIN VIA NC, WOUND CONSULT AND PT EVAL DONE IN THE MORNING, HE HAS RIGHT LEFT DRAIN ON THE BOTH BUTTOCKS AREA, HE HAS COLOSTOMY, WITH STOOL AROUND 30CC, AIR NOTED.ASPIRATION PRECAUTION OBSERVED.
--- NOTE | 2022-12-12 20:15 | NUR ---
RN NOTES: TYLENOL GIVEN FOR RIGHT SHOULDER PAIN, AFTER NON PHARMACOLOGIC INTERVENTION IS INEFFECTIVE, WARM BLANKET PROVIDED.
[2022-12-12] MEDS: TAMSULOSIN 0.4 MG CAP.SR.24H PO SCH (21:16)
[2022-12-12] MEDS: ATORVASTATIN 10 MG TABLET PO SCH (21:16)
[2022-12-13] VITALS: BP 107/54
--- NOTE | 2022-12-13 00:07 | NUR ---
RN NOTES; AWAKE IN BETWEEN, MED COMPLIANT, REPOSITIONED, KEPT CALL LIGHT WITHIN EASY REACH.
[2022-12-13] MEDS: IV NS 0.9% 1,000 ML IV SCH ×2 (01:18→11:55)
--- NOTE | 2022-12-13 01:19 | NUR ---
RN NOTES: IVF CONSUMED, NEW BOTTLE OF NS AT 100 ML/HR STARTED,IV CANNULA PATENT.
[2022-12-13 04:00] VITALS: BP 112/57
--- NOTE | 2022-12-13 07:08 | NUR ---
RN NOTES: MORNING CARE DONE, DRESSING DONE ON THE LEFT AND RIGHT BUTTOCKS, NO DRAINAGE NOTED, NO PUS, COLOSTOMY BAG DRAINED, OUTPUT AROUND 350ML MIX OF LIQUID AND SEMI SOLID STOOL, REPOSITIONED, OFF LOADING OF BOTH LOWER EXTREMITY, IVF CONTINUE, TELE MONITOR SR-65, NO COMPLAINTS OF ANY CHEST PAIN, KEPT ON CLOSE WATCH, ENDORSED FOR CONTINUITY OF CARE.
--- NOTE | 2022-12-13 07:45 | NUR ---
TELEPHONE ORDER SUPERVISOR OPENING NOTES: RECEIVED PATIENT ON BED AWAKE , MALIAN SPEAKING , ON STABLE CONDITION, PATIENT ON ROOM AIR SATURATING WELL, NO SOB OR DISTRESS NOTED , HOB AT 45 DEGREE IV LINE AT SHERRI ML , L WRIST#20 WITH ONGOING NS @100ML/HR INFUSING WELL, WITH COLOSTOMY BAG , ON TELE MONITOR AND AT SR-75 , NO C/O OF PAIN AND DISCOMFORT NOTED . SAFETY MEASURE PROVIDE , SIDERAILS UP X 2 , CALL LIGHT AT BEDSIDE WHEN NEEDED ASSISTANCE, PATIENT KEPT CLEAN AND DRY . WILL CONTINUE TO MONITOR
[2022-12-13 08:00] VITALS: BP 108/60
[2022-12-13] MEDS: LIDOCAINE 5% (PATCH) 1 EA PATCH TP SCH (08:24)
[2022-12-13] MEDS: PANTOPRAZOLE 40 MG TABLET.DR PO SCH (08:24)
[2022-12-13] MEDS: DULOXETINE HCL 20 MG CAPSULE.DR PO SCH (08:26)
[2022-12-13] MEDS: ASPIRIN EC 81 MG TABLET.DR PO SCH (08:26)
[2022-12-13] MEDS: GABAPENTIN 100 MG CAPSULE PO SCH (08:26)
[2022-12-13] MEDS: CHOLECALCIFEROL 1,000 UNIT TABLET (VIT D3) PO SCH (08:26)
[2022-12-13] MEDS: FENOFIBRATE NANOCRYS (145 MG) 145 MG TABLET PO SCH (08:27)
[2022-12-13] MEDS: AMIODARONE HCL 200 MG TABLET PO SCH (08:30)
[2022-12-13] MEDS: BENAZEPRIL HCL 10 MG TABLET PO SCH (08:31)
[2022-12-13] MEDS: METOPROLOL TARTRATE 25 MG TABLET PO SCH (08:32)
[2022-12-13] MEDS: ENOXAPARIN SODIUM 40 MG/0.4 ML DISP.SYRIN SQ SCH (08:37)
[2022-12-13] MEDS ORDERED: PROSOURCE / PROSTAT (PYXIS) 30 ML UDC GT SCH (09:00)
[2022-12-13 12:00] VITALS: BP 110/60
--- NOTE | 2022-12-13 15:30 | NUR ---
RADIOSONDE SPECIALIST OPENING NOTES: PATIENT ON BED AWAKE , MARSHALLESE SPEAKING , ON STABLE CONDITION, PATIENT ON ROOM AIR SATURATING WELL, NO SOB OR DISTRESS NOTED ,ALL DUE MEDS GIVEN ORDERED PATIENT IS WITH ORDER FOR DISCHARGE AND ALL PAPERS WERE PREPARED AND DISCHARGED INSTRUCTIONS PROVIDED TO THE RN AT THE FACILITY REGARDING MEDICATIONS , COLOSTOMY AND WOUND CARE TO BE DONE , ALL BELONGINGS WERE TAKEN AND FORM WAS SIGNED , COVID TESTING WAS DONE AND WITH RESULT OF NEGATIVE , REPORT WAS ALSO GIVEN TO AMBULANCE PERSONNEL , IV ACCESS AND ID BAND REMOVED . PATIENT LEFT WITH NO SOB OR DISTRESS NOTED AND NO C/O OF PAIN AND DISCOMFORT . LEFT IN A STABLE CONDITION , CALL LD WALKER AND REPORT WAS GIVEN ALFONSO DESOUZA . Addendum: 12/13/22 at 1637 by IVY SHAVER RN THIS NOTE IS FOR DISCHARGE NOTES
--- NOTE | 2022-12-13 15:30 | NUR ---
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 PATIENT LEFT WITH NO SOB OR DISTRESS NOTED AND NO C/O OF PAIN AND DISCOMFORT . LEFT IN A STABLE CONDITION , CALL LD WALKER AND REPORT WAS GIVEN ALFONSO DESOUZA .
== END 2022-12-13 15:00 | DRG 303 ==
LOC: ER 12:55 → MED 17:04 → TELE 20:54 → TELE-TD 12-11 08:58 → MED 12-11 23:17 → TELE 12-12 → MED 12-13 12:06
PROC: 05HB33Z Insertion of Infusion Device into Right Basilic Vein, Percutaneous Approach (ICD-10-PCS; principal; 2022-12-11)
DX: I25.119 Atherosclerotic heart disease of native coronary artery with unspecified angina pectoris (principal); K63.2 Fistula of intestine; E87.1 Hypo-osmolality and hyponatremia; M46.28 Osteomyelitis of vertebra, sacral and sacrococcygeal region; I10 Essential (primary) hypertension; I48.91 Unspecified atrial fibrillation; Z66 Do not resuscitate; Z85.048 Personal history of other malignant neoplasm of rectum, rectosigmoid junction, and anus; E78.5 Hyperlipidemia, unspecified; Z88.0 Allergy status to penicillin; Z91.041 Radiographic dye allergy status; Z79.899 Other long term (current) drug therapy; E83.52 Hypercalcemia; E88.09 Other disorders of plasma-protein metabolism, not elsewhere classified; Z93.3 Colostomy status; R29.6 Repeated falls
CPT/HCPCS: 36415; 70450-TC; 71045-TC; 80048-TC; 80053-TC; 80076-TC; 82607-TC; 83735-TC; 83970; 84100-TC; 84484-TC; 85025-TC; 85730-TC; 87081-TC; 97112-TC; 97116-TC; 97530-TC; A4223; A4349; A6253; A6403; A6407; C9803; G0378; J0282; J1650; J2430; J7030; J7040; J7050; J7060